=== PATIENT | female | born 1965 | race Two or more races ===

== ENCOUNTER 2022-11-25 20:46 | Emergency (ER) | payer SELFPAY ==
[~2022-11-25] VITALS: Ht 160 cm; Wt 76.0 kg
[2022-11-25 20:57] VITALS: O2SAT 100
[2022-11-25] MEDS ORDERED: ONDANSETRON HCL 4MG/2ML INJ IV ONE (23:00)
[2022-11-25] MEDS ORDERED: FAMOTIDINE 20MG/2ML VIAL IV ONE (23:00)
[2022-11-25] MEDS ORDERED: SODIUM CHLORIDE 0.9% 1,000 ML IV ONE (23:00)
[2022-11-25 23:12] LABS: BASOPHILS % 0.2 % (0.0-2.0); EOSINOPHILS % 0.2 % (0.0-5.0); HEMATOCRIT. 33.9 % (36.0-48.0); HEMOGLOBIN. 11.3 g/dL (12.0-16.0); LYMPHOCYTES % 12.7 % (20.0-50.0); MEAN CORPUSCULAR HEMOGLOBIN 27.5 pg (28.0-32.0); MEAN CORPUSCULAR VOLUME 82.5 fL (81.0-99.0); MEAN PLATELET VOLUME 7.6 fl (7.4-10.4); MONOCYTES % 6.8 % (2.0-8.0); NEUTROPHILS % 80.1 % (40.0-76.0); PLATELET 367 x1000/uL (130-400); RED BLOOD CELL COUNT 4.11 mill/uL (4.2-5.4); RED CELL DISTRIBUTION WIDTH 13.4 % (11.6-14.6)
[2022-11-25 23:21] LABS: CHLORIDE 103 mEq/L (98-107)
[2022-11-25 23:27] LABS: ETHANOL BLOOD < 10 mg/dL (-10)
[2022-11-26] VITALS: BP 147/55; PULSE 93; RESP 20
== END 2022-11-26 01:23 | disposition home or self-care (01) ==
LOC: ER 20:46
DX: R11.0 Nausea (principal); I10 Essential (primary) hypertension
CPT/HCPCS: 80053; 80320; 85025; 36415; 93005; 96361; 96374; 96375; 99284; J3490; J2405; J7030; Z7610; G0480